=== PATIENT | male | born 1990 | race Caucasian/White ===

== ENCOUNTER 2025-04-01 00:28 | Emergency (ER) | payer OTHER ==
[2025-04-01 00:32] VITALS: TEMP 98.9
[2025-04-01] MEDS: KETOROLAC 15 MG/ML 1 ML VIAL IVP STA (01:10)
[2025-04-01] MEDS: DIPH,PERTUS(ACELL)TETVAC-LF 0.5 ML VIAL IM ONE (01:13)
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
[2025-04-01 06:41] VITALS: BP 119/61; PULSE 60; RESP 17
== END 2025-04-01 06:41 | disposition home or self-care (01) ==
LOC: EC 00:28
DX: S02.5XXA Fracture of tooth (traumatic), initial encounter for closed fracture (principal); S02.2XXA Fracture of nasal bones, initial encounter for closed fracture; S00.83XA Contusion of other part of head, initial encounter; F17.290 Nicotine dependence, other tobacco product, uncomplicated; V49.40XA Driver injured in collision with unspecified motor vehicles in traffic accident, initial encounter; Y92.410 Unspecified street and highway as the place of occurrence of the external cause
CPT/HCPCS: 71045; 72125; 70486; 70450; 99284; 96374; J1885